=== PATIENT | male | born 1970 | race Caucasian/White ===

== ENCOUNTER 2019-10-18 18:31 | Emergency (ER) | payer OTHER ==
[~2019-10-18] VITALS: Ht 190.5 cm; Wt 176.4 kg
[2019-10-18 19:53] LABS: BASO % 0.5 % (0.0-2.0); EOS # 0.2 (0.0-0.7); EOS % 2.2 % (0-4.0); GRAN # 5.1 (1.4-6.5); GRAN % 61.5 % (42.2-75.2); HEMOGLOBIN 16.2 g/dl (13.5-18.0); LYMPH # 2.2 (1.2-3.4); LYMPH % 26.3 % (20.0-51.0); MEAN CELL VOLUME 88 fl (80.0-100.0); MEAN CORPUSCULAR HEMOGLOBIN 30 pg (27.0-31.0); MEAN CORPUSCULAR HGB CONC 35 g/dl (33.0-37.0); MEAN PLATELET VOLUME 10.9 fl (7.4-10.4); MONO # 0.8 (0.1-0.6); MONO % 9.3 % (1.7-9.3); PLATELET COUNT 162 K/mm3 (130-400); RED BLOOD COUNT 5.37 M/mm3 (4.20-5.60)
[2019-10-18 20:04] LABS: ALBUMIN 4.3 gm/dL (3.5-5.0); BILIRUBIN,TOTAL 0.6 mg/dL (0.0-1.0); C-REACTIVE PROTEIN 0.6 mg/dL (0.0-0.9); CREATININE, serum 0.85 (0.66-1.25); TOTAL PROTEIN 6.9 gm/dL (6.4-8.2)
[2019-10-18 20:31] LABS: ERYTHROCYTE SEDIMENTATION RATE 1 mm/hr (0-15)
[2019-10-18 22:37] VITALS: TEMP 98.4
[2019-10-18 23:28] VITALS: BP 138/88; PULSE 79
== END 2019-10-18 23:30 | disposition short-term general hospital (02) ==
LOC: COL.ER 18:31
PROVIDERS: Emergency Medicine
DX: M54.12 Radiculopathy, cervical region (principal); R20.2 Paresthesia of skin; E66.9 Obesity, unspecified; F17.210 Nicotine dependence, cigarettes, uncomplicated; Z68.42 Body mass index [BMI] 45.0-49.9, adult
CPT/HCPCS: J1100; J1885; J2270; J2360; J2405

== ENCOUNTER → 2023-06-30 | Outpatient (CLI) | payer OTHER | LOC: COL.RAD 07:29 | DX: R10.11 Right upper quadrant pain (principal) ==